=== PATIENT | female | born 1965 | race Two or more races ===

== ENCOUNTER 2018-05-12 10:00 | Inpatient (IN) | payer OTHER ==
[~2018-05-12] VITALS: Ht 165.1 cm; Wt 68.0 kg
[2018-05-12] MEDS ORDERED: [UNRECOGNIZED DRUG - REMARK] PO (11:53)
[2018-05-20] MEDS ORDERED: ULTRACET PO (07:43)
[2018-05-20] MEDS ORDERED: RECTICARE30 GM TOP (07:43)
== END 2018-05-20 08:13 | disposition home or self-care (01) | DRG 395 ==
LOC: SURH 10:00 → O/R 05-19 05:58 → SURH 05-19 07:00 → SURG 05-19 08:54 → SURH 05-19 10:00 → SURG 05-19 10:39
PROVIDERS: ADMIT Surgery
PROC: 3E0T3BZ Introduction of Anesthetic Agent into Peripheral Nerves and Plexi, Percutaneous Approach (ICD-10-PCS; 2018-05-19)
PROC: 0DBP8ZZ Excision of Rectum, Via Natural or Artificial Opening Endoscopic (ICD-10-PCS; principal; 2018-05-19 07:00)
DX: D12.8 Benign neoplasm of rectum (principal)